=== PATIENT | male | born 1980 | race Caucasian/White ===

== ENCOUNTER 2021-01-13 12:09 | Emergency (ER) | payer MEDICAID, SELFPAY ==
[2021-01-13 12:10] VITALS: BP 131/88; PULSE 88; RESP 18; TEMP 36.6; O2SAT 99; BMI 27.8
--- NOTE | 2021-01-13 12:20 | XR_ITS ---
PROCEDURE: XR FEMUR LT 2V CLINICAL INDICATION: PAIN COMPARISON: No exams were available for comparison FINDINGS: No obvious fracture or dislocation. There are mild osteoarthritic changes the left hip and knee joint. No lytic or blastic change Other findings:None. 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
--- NOTE | 2021-01-13 12:46 | HMH.EDUTC ---
[facility] Clinical Impression: Muscle strain Disposition: Home, Self-Care Condition on Discharge: Good Instructions: Muscle Strain, DI for Muscle Strain, How To Perform RICE (Rest, Ice, Compress, Elevate) Additional Instructions: Compression shorts may help with muscle pain in upper legs and groin area Follow up with your Family Doctor if no improvement or any worsening of symptoms Return if needed Straight to ER if any life threatening symptoms Referrals: Provider,Referral, MD [Primary Care Provider] - As needed Time of Disposition: 13:03 Medical Decision Making - Robbie Inquiry Pt receiving controlled substance: No Robbie was queried for this patient: No Vital Signs: 01/13/21 12:10 Temperature 97.9 F Temperature Source Oral Pulse Rate [Right Brachial] 88 Respiratory Rate 18 Blood Pressure [Right Arm] 131/88 Blood Pressure Mean [Right Arm] 102 Blood Pressure Source [Right Arm] Automatic Cuff Blood Pressure Position [Right Arm] Sitting 02 Sat by Pulse Oximetry 99 Oxygen Delivery Method Room Air [facility] [place] - General Stated complaint: Lt leg pain Time Seen by Provider: 01/13/21 12:47 Mode of Arrival: Ambulatory Source of Information: Patient Limitations: No Limitations Description of Symptoms (Recalled from Triage Doc. 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 and unsure if he may have done something to pull something or not but was concerned due to it going on for 10 days so he came in to get it checked - Related Data Home Medications Medication Instructions Recorded Confirmed Buprenorphine HCl/Naloxone HCl 1.5 each SL DAILY 01/13/21 01/13/21 [Suboxone 8mg/2mg ODT] Allergies Allergy/AdvReac Type Severity Reaction Status Date / Time No Known Allergies Allergy Verified 01/13/21 12:36 - Worker's Comp Is this a Worker's Comp case?: No [facility] History - Hepatitis A Screen Drug use history?: No High risk sexual behaviors?: No History of sexually transmitted infection?: No Currently employed?: No Childcare worker?: No Do you have indoor plumbing?: Yes Do you have electricity?: Yes Attestation statement:: This patient has been screened for Hepatitis A risk factors. I have reviewed the patient's past medical history: Yes - Social History Alcohol Intake: never Occupational Status: other ROS Obtained: Yes All systems reviewed & no additional complaints, Yes Systems reviewed as appropriate & no additional complaints - Constitutional Constitutional: Reports system reviewed and no additional complaints, except as docu, Denies body ache, Denies fatigue, Denies fever(s), Denies headache(s) - ENT Ears, Nose, Mouth, and Throat: Reports system reviewed and no additional complaints, except as docu - Cardiovascular Cardiovascular: Reports system reviewed and no additional complaints, except as docu - Respiratory Respiratory: Reports system reviewed and no additional complaints, except as docu - Gastrointestinal Gastrointestingal: Reports: system reviewed and no additional complaints, except as docu - Musculoskeletal Comments: Pain in left upper leg muscle for 10 days pain worse when he raises leg or gets in certain positions Physical Exam - General General appearance: alert, in no apparent distress - Respiratory Respiratory exam: Present: normal lung sounds bilaterally. Absent: respiratory distress - Cardiovascular Cardiovascular exam: P
[2021-01-13 13:07] VITALS: BP 131/88; PULSE 88; RESP 18; TEMP 36.6; O2SAT 99
== END 2021-01-13 13:10 | disposition home or self-care (01) ==
PROVIDERS: Emergency Provider Nurse Practitioner
DX: S76.912A Strain of unspecified muscles, fascia and tendons at thigh level, left thigh, initial encounter (principal); X50.9XXA Other and unspecified overexertion or strenuous movements or postures, initial encounter
CPT/HCPCS: 73552; 99202; G0463

== ENCOUNTER 2021-08-29 14:04 | Emergency (ER) | payer MEDICAID, SELFPAY ==
[2021-08-29 14:05] VITALS: BP 128/89; PULSE 84; RESP 16; TEMP 36.7; O2SAT 97; BMI 26.4
[2021-08-29 14:32] VITALS: BMI 26.4
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
[2021-08-29 16:05] VITALS: BP 128/89; PULSE 84; RESP 16; TEMP 36.7; O2SAT 97
--- NOTE | 2021-08-29 16:05 | PC.NURSE ---
pt signed out AMA at this time.
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
== END 2021-08-29 16:05 | disposition left against medical advice (07) ==
PROVIDERS: Emergency Provider Emergency Medicine; PCP Internal Medicine Adolescent Medicine
DX: Z53.21 Procedure and treatment not carried out due to patient leaving prior to being seen by health care provider (principal); M54.2 Cervicalgia
CPT/HCPCS: 70450; 72125; 99282

== ENCOUNTER 2021-08-29 18:46 | Emergency (ER) | payer MEDICAID, SELFPAY ==
[2021-08-29 18:47] VITALS: BP 135/82; PULSE 80; RESP 17; TEMP 36.9; O2SAT 97; BMI 26.6
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
[2021-08-29 19:25] VITALS: BP 135/82; PULSE 80; RESP 20; TEMP 36.8; O2SAT 99
== END 2021-08-29 19:27 | disposition home or self-care (01) ==
PROVIDERS: Emergency Provider Emergency Medicine; PCP Internal Medicine Adolescent Medicine
DX: S16.1XXA Strain of muscle, fascia and tendon at neck level, initial encounter (principal); S00.03XA Contusion of scalp, initial encounter; Y92.413 State road as the place of occurrence of the external cause; V54.5XXA Driver of pick-up truck or van injured in collision with heavy transport vehicle or bus in traffic accident, initial encounter
CPT/HCPCS: 99282

== ENCOUNTER 2021-10-28 19:01 | Emergency (ER) | payer MEDICAID, SELFPAY ==
[2021-10-28 19:02] VITALS: BP 148/100; PULSE 89; RESP 18; TEMP 36.6; O2SAT 98; BMI 26.4
[2021-10-28 19:20] LABS: Microscopic, Urine URINE MICROSCOPIC (MICROSCOPIC)
[2021-10-28 19:26] LABS: Appearance,Urine CLEAR (Clear); Bilirubin,Urine Negative (Negative); Blood, Urine Negative (Negative); Color,Urine YELLOW (Yellow); Glucose,Urine (UA) Negative (Negative); Ketones,Urine TRACE (Negative); Leukocyte Esterase,Urine Negative (Negative); Nitrate,Urine Negative (Negative); PH,Urine 6.5 (5.0-8.5); Protein,Urine TRACE (Negative); Specific Gravity, Urine 1.025 (1.005-1.030)
--- NOTE | 2021-10-28 19:27 | CT_ITS ---
PROCEDURE INFORMATION: Exam: CT Abdomen And Pelvis With Contrast Exam date and time: 10/28/2021 7:27 PM Age: 41 years old Clinical indication: Abdominal pain; Generalized; Additional info: Barron burk TECHNIQUE: Imaging protocol: Computed tomography of the abdomen and pelvis with contrast. Radiation optimization: All CT scans at this facility use at least one of these dose optimization techniques: automated exposure control; mA and/or kV adjustment per patient size (includes targeted exams where dose is matched to clinical indication); or iterative reconstruction. Contrast material: ISOVUE; Contrast volume: 75 ml; Contrast route: IV; COMPARISON: CR XR FEMUR LT 2V 01/13/2021 12:20 PM FINDINGS: Lungs: Lung bases: There is a densely calcified granuloma anteriorly at the right lung base. Liver: There is a low-density nodule located anteriorly in the left lobe. Findings most compatible with a small cyst. This measures approximately 10 mm in maximum dimensions. Gallbladder and bile ducts: Normal. No calcified stones. No ductal dilation. Pancreas: Normal. No ductal dilation. Spleen: The spleen is mildly enlarged. Adrenal glands: Normal. No mass. Kidneys and ureters: Normal. No hydronephrosis. Stomach and bowel: Unremarkable. No obstruction. No mucosal thickening. Appendix: No evidence of appendicitis. Intraperitoneal space: Unremarkable. No free air. No significant fluid collection. Vasculature: Unremarkable. No abdominal aortic aneurysm. Lymph nodes: Unremarkable. No enlarged lymph nodes. Urinary bladder: Unremarkable as visualized. Reproductive: Unremarkable as visualized. Bones/joints: Unremarkable. No acute fracture. Soft tissues: Unremarkable. Other findings: IMPRESSION: 1. Evidence of prior granulomatous disease. 2. Mild splenomegaly. 3. 10 mm cyst left lobe of the liver.
[2021-10-28 19:38] LABS: Basophils # 0.1 K/mm3 (0-0.2); Basophils % 1.8 % (0.1-2.0); Eosinophils # 0.1 K/mm3 (0.0-0.4); Eosinophils % 1.4 % (0.1-12.0); Hematocrit 45.5 % (42.0-52.0); Hemoglobin 14.8 g/dL (14.1-18.0); Lymphocytes # 0.9 K/mm3 (0.7-4.5); Lymphocytes % 18.5 % (10-50); Mean Corpuscular HGB Conc 32.6 g/dL (31.8-35.4); Mean Corpuscular Hemoglobin 30.5 pg (27.0-31.2); Mean Corpuscular Volume 93.5 fl (80-94); Mean Platelet Volume 8.3 fl (7.4-10.4); Monocytes # 0.4 K/mm3 (0.1-1.0); Neutrophils # 3.3 K/mm3 (1.8-7.8); Neutrophils % 69.2 % (37.0-80.0); Platelet Count 194 K/mm3 (142-424); Red Blood Count 4.86 M/mm3 (4.60-6.20); Red Cell Distribution Width 13.3 % (11.5-17.5); White Blood Count 4.8 K/mm3 (4.8-10.8)
[2021-10-28 19:41] LABS: Bacteria,Urine Trace /lpf; Mucus,Urine 2+ /lpf; RBC,Urine Occasional #/hpf (0-3); WBC,Urine Occasional #/hpf (0-3)
[2021-10-28 19:43] LABS: Alanine Aminotransferase 22 U/L (12-78); Albumin Level 4.2 g/dl (3.5-5.0); Albumin/Globulin Ratio 1.7 (1.1-1.8); Alkaline Phosphatase 61 U/L (38-126); Amylase 40 U/L (30-110); Anion Gap 9.8 mEq/L (5-15); Aspartate Amino Transferase 25 U/L (17-59); Bilirubin,Total 0.4 mg/dl (0.2-1.3); Blood Urea Nitrogen 15 mg/dl (9-20); Calcium 8.5 mg/dl (8.4-10.2); Carbon Dioxide 31 mmol/L (22.0-30.0); Chloride 100 mmol/L (98-107); Creatinine Clearance Estimated 151 mL/min (50-200); Estimated Glomerular Filt Rate 108 ml/min (>60); GFR (African American) 130 ML/MIN (>60); Globulin 2.5 g/dL (1.3-3.2); Glucose 100 mg/dl (74-100); Lipase 64 U/L (23-300); Potassium 3.8 mmoL/L (3.5-5.1); Sodium 137 mmol/L (136-145); Total Protein,Serum 6.7 g/dl (6.3-8.2)
[2021-10-28 19:47] LABS: Opiate Screen,Urine Negative ng/ml (<300)
[2021-10-28 19:48] LABS: Phencyclidine Screen,Urine Negative ng/ml (<25)
--- NOTE | 2021-10-28 19:52 | HMH.EDGENADL ---
ED Disposition Condition on Discharge: Good - Critical Care Critical Care Time: No <BernardsoheilaJustin - Last Filed: 10/28/21 19:59> Condition on Discharge: Good Time of Disposition: 21:33 - Critical Care Critical Care Time: No <Sherri Mar - Last Filed: 10/28/21 21:36> Clinical Impression: Vomiting and diarrhea, Epigastric abdominal pain Abdominal pain Qualifiers: Abdominal location: right upper quadrant Qualified Code(s): R10.11 - Right upper quadrant pain Disposition: Home, Self-Care Instructions: DI for Acute Abdominal Pain, DI for Epigastric Pain Additional Instructions: You have been evaluated for upper abdominal pain. There is no clear finding on your CT scan. It is possible that your pain is due to gastritis or ulcer. Please try a food elimination diet. Avoid caffeine, alcohol, spicy food. Try omeprazole. Follow-up with your primary care doctor, gastroenterology if needed. You may need to have an endoscopy, EGD. Zofran for nausea. Return to the emergency department for any new or worsening symptoms. Prescriptions: Omeprazole [Omeprazole 20mg Tab] 20 mg PO DAILY #30 tab Transmission Status: Pending to [facility] Ondansetron [Zofran 4mg ODT] 4 mg PO TIDP PRN #12 tab PRN Reason: Nausea Transmission Status: Pending to [facility] Referrals: Eamon Mendenhall MD [Primary Care Provider] - Attestation: On 10/28/21, the high probability of a clinically significant, sudden or life threatening deterioration of the following system(s) required my full and direct attention, intervention and personal management. The time I documented below is in addition to time spent performing reported procedures but includes the following listed in this critical care notation. Medical Decision Making - Robbie Inquiry Pt receiving controlled substance: No - Lab Data Result diagrams: 10/28/21 19:25 10/28/21 19:25 <Justin Peres - Last Filed: 10/28/21 19:59> - Lab Data Result diagrams: 10/28/21 19:25 10/28/21 19:25 <Sherri Mar - Last Filed: 10/28/21 21:36> Vital Signs: 10/28/21 19:02 Temperature 97.9 F Temperature Source Oral Pulse Rate [Right] 89 Respiratory Rate 18 Blood Pressure [Right Arm] 148/100 H Blood Pressure Mean [Right Arm] 116 02 Sat by Pulse Oximetry 98 - Lab Data Lab Results 10/28/21 19:11: Urine Color Yellow, Urine Appearance Clear, Urine pH 6.5, Ur Specific [place] 1.025, Urine Protein Trace, Urine Glucose (UA) Negative, Urine Ketones Trace, Urine Blood Negative, Urine Nitrate Negative, Urine Bilirubin Negative, Urine Urobilinogen 2.0, Ur Leukocyte Esterase Negative, Urine RBC Occasional, Urine WBC Occasional, Ur Squamous Epith Cells 3-5, Urine Bacteria Trace, Urine Mucus 2+ 10/28/21 19:11: Urine Opiates Screen Negative, Urine Methadone Screen Negative, Ur Barbituates Screen Negative, Ur Phencyclidine Scrn Negative, Ur Amphetamines Screen Negative, U Benzodiazepines Scrn Negative, Urine Cocaine Screen Negative, U Marijuana (THC) Screen Negative 10/28/21 19:25: WBC 4.8, RBC 4.86, Hgb 14.8, Hct 45.5, MCV 93.5, MCH 30.5, MCHC 32.6, RDW 13.3, Plt Count 194, MPV 8.3, Neut % (Auto) 69.2, Lymph % (Auto) 18.5, Edmunds % (Auto) 9.0, Eos % (Auto) 1.4, Baso % (Auto) 1.8, Neut # (Auto) 3.3, Lymph # (Auto) 0.9, Edmunds # (Auto) 0.4, Eos # (Auto) 0.1, Baso # (Auto) 0.1 10/28/21 19:25: Sodium 137, Potassium 3.8, Chloride 100, Carbon Dioxide 31 H, Anion Gap 9.8, BUN 15, Creatinine 0.80, Estimated Creat Clear 151, Estimated GFR 108, Est GFR ( Amer) 130, Glucose 100, Calcium 8.5, Total Bilirubin 0.4, AST 25, ALT 22, Alkaline Phosphatase 61, Total Protein 6.7, Albumin 4.2, Globulin 2.5, Albumin/Globulin Ratio 1.7, Amylase 40, Lipase 64 Orders (Tests/Meds): ED MEDICATIONS Discontinued Medications Generic Name Dose Route Start Last Admin Trade Name Freq PRN Reason Stop Dose Admin Sodium Chloride 1,000 mls @ 999 mls/hr 10/28/21 19:30 10/28/21 19:33 Sod Chlor 0.9%
[2021-10-28 20:03] LABS: Barbiturates Screen,Urine Negative ng/ml (<200)
[2021-10-28 20:04] LABS: Benzodiazepines Screen,Urine Negative ng/ml (<200)
[2021-10-28 20:05] LABS: Amphetamine/Metha Screen,Urine Negative ng/ml (<1000); Cannabinoid Screen,Urine Negative ng/ml (<50)
[2021-10-28 20:06] LABS: Cocaine Screen,Urine Negative ng/ml (<300); Methadone Screen,Urine Negative ng/ml (<300)
[2021-10-28 21:43] VITALS: BP 140/90; PULSE 80; RESP 18; TEMP 36.8; O2SAT 98
== END 2021-10-28 21:53 | disposition home or self-care (01) ==
PROVIDERS: Emergency Provider Emergency Medicine; PCP Internal Medicine Adolescent Medicine
DX: R10.11 Right upper quadrant pain (principal); R10.13 Epigastric pain
CPT/HCPCS: 74177; 80053; 80305; 81001; 82150; 83690; 85025; 96374; 96375; 99284; J2405; Q9967

== ENCOUNTER → 2021-11-28 08:16 | Outpatient (CLI) | payer MEDICAID, SELFPAY ==
--- NOTE | 2021-11-28 08:18 | US_ITS ---
FINAL REPORT CLINICAL HISTORY: ABD PAIN, right upper quad; pain after eating greasy food FINDINGS: Sonographic images of the right upper quadrant were obtained. The pancreas is partially obscured.The liver has an unremarkable appearance.The gallbladder appears normal without evidence of gallstones.There is no evidence of biliary ductal dilatation.The common duct measures 2 mm. Limited images of the right kidney are unremarkable. IMPRESSION: Unremarkable right upper quadrant ultrasound. Reviewed, Interpreted and Dictated by Raman Waterman III, MD Transcribed by Anni Frances Authenticated by Raman Waterman III, MD on 11/28/2021 10:37:53 AM [facility]
== END ==
PROVIDERS: PCP Internal Medicine Adolescent Medicine; Visit Provider Internal Medicine Adolescent Medicine
DX: R10.11 Right upper quadrant pain (principal)
CPT/HCPCS: 76705

== ENCOUNTER 2022-12-26 19:42 | Emergency (ER) | payer MEDICAID, SELFPAY ==
[2022-12-26 19:43] VITALS: BP 158/100; PULSE 83; RESP 18; TEMP 36.8; O2SAT 97; BMI 28.7
--- NOTE | 2022-12-26 20:05 | CT_ITS ---
PROCEDURE INFORMATION: Exam: CT Abdomen And Pelvis With Contrast Exam date and time: 12/26/2022 9:17 PM Age: 42 years old Clinical indication: Abdominal pain TECHNIQUE: Imaging protocol: Computed tomography of the abdomen and pelvis with contrast. Radiation optimization: All CT scans at this facility use at least one of these dose optimization techniques: automated exposure control; mA and/or kV adjustment per patient size (includes targeted exams where dose is matched to clinical indication); or iterative reconstruction. Contrast material: ISOVUE; Contrast volume: 75 ml; Contrast route: IV; REPORTING DATA: Count of CT and Cardiac NM exams in prior 12 months: This patient has received 0 known CTs and 0 known cardiac nuclear medicine studies in the 12 months prior to the current study. COMPARISON: CT ABDOMEN PELVIS W CON 10/28/2021 7:37 PM FINDINGS: Lungs: Calcified granuloma right lung base. Liver: Normal. No mass. Gallbladder and bile ducts: Normal. No calcified stones. No ductal dilation. Pancreas: Normal. No ductal dilation. Spleen: Mild splenomegaly. Adrenal glands: Normal. No mass. Kidneys and ureters: Normal. No hydronephrosis. Stomach and bowel: Unremarkable. No obstruction. No mucosal thickening. Scattered colonic diverticula predominantly in the sigmoid colon. Retained stool in the colon. Fecalization of the terminal ileum. Appendix: No evidence of appendicitis. Intraperitoneal space: Unremarkable. No free air. No significant fluid collection. Vasculature: Unremarkable. No abdominal aortic aneurysm. Lymph nodes: Unremarkable. No enlarged lymph nodes. Urinary bladder: Unremarkable as visualized. Reproductive: Unremarkable as visualized. Bones/joints: Unremarkable. No acute fracture. Soft tissues: Unremarkable. Other findings: Previously demonstrated anterior left lobe cyst not well demonstrated on the current study. IMPRESSION: 1. No free air or fluid or adenopathy. 2. Nonspecific bowel gas pattern. Normal appendix. 3. Scattered colonic diverticula without diverticulitis. 4. Mild fecalization of the terminal ileum coronal image 1001/24. Findings may indicate slow transit. 5. Redemonstration of mild splenomegaly. 6. Other (less critical/noncritical/incidental) findings as above; please refer to the body of report for further details.
[2022-12-26 20:46] LABS: Basophils # 0.1 K/mm3 (0-0.2); Basophils % 0.8 % (0.1-2.0); Eosinophils # 0.2 K/mm3 (0.0-0.4); Eosinophils % 2.5 % (0.1-12.0); Hematocrit 42.1 % (42.0-52.0); Hemoglobin 14.2 g/dL (14.1-18.0); Lymphocytes # 2.4 K/mm3 (0.7-4.5); Lymphocytes % 29.8 % (10-50); Mean Corpuscular HGB Conc 33.6 g/dL (31.8-35.4); Mean Corpuscular Hemoglobin 30.3 pg (27.0-31.2); Mean Corpuscular Volume 90.1 fl (80-94); Mean Platelet Volume 7.8 fl (7.4-10.4); Monocytes # 0.5 K/mm3 (0.1-1.0); Monocytes % 5.7 % (1.7-9.3); Neutrophils % 61.2 % (37.0-80.0); Platelet Count 227 K/mm3 (142-424); Red Blood Count 4.67 M/mm3 (4.60-6.20); White Blood Count 8.1 K/mm3 (4.8-10.8)
[2022-12-26 21:02] LABS: Chloride 99 mmol/L (98-107); Potassium 4.3 mmoL/L (3.5-5.1); Sodium 137 mmol/L (136-145)
[2022-12-26 21:04] LABS: Alanine Aminotransferase 47 U/L (12-78); Aspartate Amino Transferase 52 U/L (17-59); Blood Urea Nitrogen 20 mg/dl (9-20); Creatinine Clearance Estimated 126 mL/min (50-200); Estimated Glomerular Filt Rate 83 ml/min (>60); GFR (African American) 100 ML/MIN (>60)
[2022-12-26 21:05] LABS: Albumin Level 4.5 g/dl (3.5-5.0); Albumin/Globulin Ratio 1.6 (1.1-1.8); Alkaline Phosphatase 77 U/L (38-126); Anion Gap 17.3 mEq/L (5-15); Bilirubin,Total 0.5 mg/dl (0.2-1.3); Calcium 8.8 mg/dl (8.4-10.2); Carbon Dioxide 25 mmol/L (22.0-30.0); Globulin 2.8 g/dL (1.3-3.2); Glucose 95 mg/dl (74-100); Lipase 95 U/L (23-300); Total Protein,Serum 7.3 g/dl (6.3-8.2)
[2022-12-26 22:53] VITALS: BP 159/98; PULSE 82; RESP 18; TEMP 36.6; O2SAT 99
--- NOTE | 2022-12-27 00:30 | HMH.EDGENADL ---
Discharge Plan Disposition Patient Disposition: Home, Self-Care Condition: Good Prescriptions Prescriptions: No Action buprenorphine-naloxone 1 EACH tablet, sublingual 1.5 each SL DAILY gabapentin 800 MG tablet 800 mg PO TID omeprazole 20 MG tablet,delayed release (DR/EC) 20 mg PO DAILY Qty: 30 0RF ondansetron 4 MG tablet,disintegrating 4 mg PO TIDP PRN (Reason: Nausea) Qty: 12 0RF Referrals Follow up/Referrals: Eamon Mendenhall MD [Primary Care Provider] - See instructions Clinical Impressions Clinical Impression: Abdominal pain Instructions Patient Instructions: DI for Acute Abdominal Pain Discharge ED Provider: Nicho Sahni General Adult HPI General Chief complaint: Abdominal Pain Stated complaint: right side pain, sweats Time Seen by Provider: 12/26/22 20:08 Mode of Arrival: Ambulatory Source of Information: Patient Limitations: No Limitations Description of Symptoms (Recalled from ER Triage Doc. by RN): Pt arrives to ED w c/o right sided flank and abd pain along w nausea and consistent sweating for approx 4-5 days. Pt stated he has had an ongoing hx of this pain and was last dx w a cyst on his liver approx 1-2 months ago. Denies any urinary symptoms or problems w bowel movements. History of Present Illness HPI narrative: This is a very pleasant 42-year-old gentleman with no significant past medical history who presents to the emergency department the chief complaint of right upper quadrant pain. Patient states this is been going on for 4 to 5 years. Unable to get any relief. Has seen multiple providers for it. He has nausea denies any urinary symptoms, denies fevers, no chest pain or shortness of breath. Related Data Home Medications Medication Instructions Recorded Confirmed buprenorphine 8 mg-naloxone 2 mg 1.5 each SL DAILY DRUG ADDICTION 01/13/21 10/28/21 sublingual tablet gabapentin 800 mg tablet 800 mg PO TID Pain 10/28/21 10/28/21 Previous Rx's Medication Instructions Recorded omeprazole 20 mg tablet,delayed 20 mg PO DAILY #30 tabs 10/28/21 release ondansetron 4 mg disintegrating 4 mg PO TIDP PRN Nausea #12 tabs 10/28/21 tablet Allergies Allergy/AdvReac Type Severity Reaction Status Date / Time No Known Allergies Allergy Verified 01/13/21 12:36 [facility] Disclaimer: The information contained in this section may have been updated after the patient was seen, as this information can be updated by other users. Social History Smoking Status: Current every day smoker alcohol intake: never current occupational status: other Travel in the last 8 weeks: None ROS Obtained: Yes All systems reviewed & no additional complaints except as documented Physical Exam General General appearance: alert and in no apparent distress Head Head exam: atraumatic and normocephalic Eye Eye exam: Present normal appearance and EOMI ENT ENT exam: Present normal exam Neck Neck exam: Present normal inspection Chest Chest inspection: Present normal inspection Respiratory Respiratory exam: Present normal lung sounds bilaterally Cardiovascular Cardiovascular exam: Present regular rate and normal rhythm Abdominal Exam Abdominal exam: Present soft and other (Tender to palpation in the right upper quadrant, no rebound, no guarding, no tenderness elsewhere, Quiñones's sign is negative.) Neurological Exam Neurological exam: Present alert and oriented X3 Medical Decision Making Robbie Inquiry Pt receiving controlled substance: No Vital Signs: 12/26/22 19:43 12/26/22 22:53 Temperature 98.3 F 98 F Temperature Source Oral Oral Pulse Rate 82 Pulse Rate [Right] 83 Respiratory Rate 18 18 Blood Pressure 159/98 H Blood Pressure [Right Arm] 158/100 H Blood Pressure Mean [Right Arm] 119 Blood Pressure Source Automatic Cuff Blood Pressure Position Sitting 02 Sat by Pulse Oximetry 97 Oxygen Delivery Method Room Air Room Air Lab Data Lab Re
== END 2022-12-26 22:59 | disposition home or self-care (01) ==
PROVIDERS: Emergency Provider Emergency Medicine; PCP Internal Medicine Adolescent Medicine
DX: R10.11 Right upper quadrant pain (principal); R11.0 Nausea; F17.200 Nicotine dependence, unspecified, uncomplicated
CPT/HCPCS: 74177; 80053; 83690; 85025; 96374; 96375; 99285; J2405; Q9967